=== PATIENT | male | born 1940 | race Caucasian/White ===

== ENCOUNTER 2022-06-18 17:43 | Outpatient (CLI) | payer MEDICARE, BC, SELFPAY | END 2022-06-18 17:44 | disposition home or self-care (01) | LOC: AMB 06-23 19:13 | PROVIDERS: PCP Surgery; Visit Provider Emergency Medicine Emergency Medical Services | DX: R07.89 Other chest pain (principal); M79.642 Pain in left hand; M54.2 Cervicalgia | CPT/HCPCS: A0425; A0427; A0428 ==

== ENCOUNTER 2022-06-18 18:17 | Emergency (ER) | payer MEDICARE, BC, SELFPAY ==
[2022-06-18 18:27] VITALS: BP 152/106; PULSE 50; RESP 14; TEMP 36.4; O2SAT 99; BMI 24.4
--- NOTE | 2022-06-18 18:27 | ED_ITS ---
HPI - General Adult General Time Seen by Provider: 18:46 Date Seen: 06/18/22 Chief complaint: Neck Injury/Pain Stated complaint: Arm Pain Time Seen by Provider: 06/18/22 18:26 Source: patient, EMS and RN notes reviewed Mode of arrival: EMS Limitations: no limitations History of Present Illness HPI narrative: Patient is from a memory care unit where he was sent in for left arm pain. He can very precisely describe to me that the pain is starting from his neck goes down the back of the left shoulder and will shoot down into the arm. Denies any numbness tingling. There is no known trauma that we are aware. There is no reported fevers. He was also reportedly found to be bradycardic per staff. He is denying any chest pain, no difficulty breathing no abdominal symptoms. He does tell me that he has memory issues. [place] states that [place] but he can not remember the flavor. Related Data Home Medications Medication Instructions Recorded Confirmed apixaban 5 mg tablet (Eliquis) mg 06/18/22 atorvastatin 40 mg tablet mg 06/18/22 diclofenac sodium 1 % topical gel topical 06/18/22 donepezil 10 mg tablet mg 06/18/22 hydrocortisone 1 % topical cream applic 06/18/22 ketoconazole 2 % topical cream applic topical 06/18/22 metoprolol succinate 50 mg mg PO 06/18/22 tablet,extended release 24 hr mirtazapine 30 mg tablet mg 06/18/22 polyethylene glycol 3350 17 gram g 06/18/22 oral powder packet quetiapine 25 mg tablet mg 06/18/22 sennosides 8.6 mg-docusate sodium PO 06/18/22 50 mg tablet (Senokot-S) white petrolatum topical 06/18/22 Previous Rx's Medication Instructions Recorded prednisone 20 mg tablet 20 mg PO DAILY #5 tabs 06/18/22 Allergies Allergy/AdvReac Type Severity Reaction Status Date / Time morphine AdvReac Intermediate Gastrointestinal Verified 06/18/22 18:25 Upset [id number] Reductase AdvReac Intermediate Gastrointestinal Verified 06/18/22 18:25 Inhibitor Upset Review of Systems Status of ROS: Reports: 6 or more systems reviewed and unremarkable except as noted in History and below Exam Const: Vital Signs, click to edit/add: Vital Signs - 24 hr 06/18/22 18:27 06/18/22 18:54 06/18/22 20:33 Temperature 97.5 F L Pulse Rate [Pulse Oximeter] 50 L 50 L Respiratory Rate 14 16 Blood Pressure [Ri ght Upper Arm] 152/106 H 166/104 H Pulse Oximetry 99 97 97 Oxygen Delivery Me thod Room Air Documenting provider has reviewed patient's vital signs: yes Common normals: no apparent distress, average body habitus, healthy appearing and alert General appearance: cooperative, comfortable, well kempt and well developed HENMT: Common normals: normocephalic, head/scalp atraumatic and hearing grossly normal bilaterally Head and scalp: normocephalic and atraumatic Eye: Common normals: PERRL, EOMs intact bilaterally, conjunctivae normal and no scleral icterus Conjunctiva: conjunctiva(e) normal Pupil: PERRL Neck & C-Spine: Common normals: full ROM, no lymphadenopathy, supple, no meningeal signs, no JVD and thyroid normal Thyroid: thyroid normal Chest: Common normals: inspection of chest normal and palpation of chest normal Resp: Common normals: normal respiratory effort, no retractions, no use of accessory muscles and clear to auscultation bilaterally Auscultation: clear to auscultation bilaterally Cardio: Common normals: no JVD, regular rate, regular rhythm, S1 normal heart sound, S2 normal heart sound, no gallops, no clicks and no murmurs Rate: regular rate Rhythm: regular rhythm Heart sounds: S1 normal and S2 normal Extremity: Other: Has no pain with range of motion of the shoulder. Has normal strength throughout his left arm. Normal light touch sensation and normal vascularity in this extremity. Neuro: Common normals: CN's II-XII intact bilaterally, moves all extremities, no focal motor deficits, no sensory deficits noted and gait normal Sensorium/orientation: alert Meningeal signs: no meningeal signs Psych: Appearance: well kempt Skin: Common normals: no rashes or lesions noted General skin exam: no rashes or lesions noted Course Course Hospital Course: We will x-ray his neck as this seems to be a classic cervical radiculopathy that he is relaying to me. The nursing staff reported they were concerned about bradycardia. Will have him on cardiac monitoring and pulse oximetry. Will get appropriate labs. I do see that he is on metoprolol, dosing may need to be decreased as I do not know his dose. Reevaluation(s) Reevaluation #1: Reviewed with patient that I believe he has a pinched nerve causing his left arm symptoms. He is ambulated here without any difficulty, has not changed his symptoms. His bradycardia at this point is asymptomatic, they can do outpatient Holter or other monitoring but at this time he seems asymptomatic. He tells me that he has not been fed in a month here. He would like some bread in jam. I did provide this for him. Time: 20:46 Vital Signs Vital signs: Initial Vital Signs Temperature 97.5 F L 06/18/22 18:27 Temperature Source Temporal Artery Scan 06/18/22 18:27 Pulse Rate 50 L 06/18/22 18:27 Respiratory Rate 14 06/18/22 18:27 Blood Pressure 152/106 H 06/18/22 18:27 Blood Pressure Mean 121 06/18/22 18:27 Pulse Oximetry 99 06/18/22 18:27 Oxygen Delivery Method 06/18/22 18:27 Vital Signs Temperature 97.5 F L 06/18/22 18:27 Pulse Rate 50 L 06/18/22 18:27 Respiratory Rate 14 06/18/22 18:27 Blood Pressure 152/106 H 06/18/22 18:27 Pulse Oximetry 99 06/18/22 18:27 Oxygen Delivery Method 06/18/22 18:27 Temperature 97.5 F L 06/18/22 18:27 Pulse Rate 50 L 06/18/22 20:33 Respiratory Rate 16 06/18/22 20:33 Blood Pressure 166/104 H 06/18/22 20:33 Pulse Oximetry 97 06/18/22 20:33 Oxygen Delivery Method 06/18/22 18:27 Medical Decision Making Lab Data Lab results reviewed: Yes I reviewed the patient's lab results Labs: Lab Results 06/18/22 06/18/22 06/18/22 Range/Units 19:33 19:33 19:33 WBC 5.32 (4.50-11.00) K/uL RBC 4.11 L (4.30-5.90) m/uL Hgb 13.2 L (13.5-17.5) gm/dL Hct 38.2 (37.0-53.0) % MCV 93 (80-100) fL MCH 32 (26-34) pg MCHC 35 (32-36) gm/dL RDW Coeff of Bong 12.7 (11.5-15.5) % Plt Count 147 (140-440) K/uL Neut % (Auto) 47.0 (42.0-72.0) % Lymph % (Auto) 36.8 (20-44) % Starke % (Auto) 11.5 H (0.0-11.0) % Eos % (Auto) 4.1 (0.0-7.0) % Baso % (Auto) 0.4 (0.0-3.0) % Neut # (Auto) 2.50 (1.7-7.0) K/uL Lymph # (Auto) 1.96 (0.90-2.90) K/uL Starke # (Auto) 0.60 (0.00-0.90) K/UL Eos # (Auto) 0.22 (0.00-0.50) K/uL Baso # (Auto) 0.02 (0.00-0.30) K/uL Sodium 137 (135-149) mmol/L Potassium 4.5 (3.6-5.1) mmol/L Chloride 103 (96-114) mmol/L Carbon Dioxide 29 (20-32) mmol/L BUN 19 (7-30) mg/dL Creatinine 1.0 (0.5-1.5) mg/dL Estimated Creat Clear 59.90 Estimated GFR 77 ml/min Glucose 89 (60-115) mg/dL Calcium 9.1 (8.4-10.6) mg/dL Magnesium 1.8 (1.5-2.6) mg/dL Total Bilirubin 0.8 (0.1-1.5) mg/dL AST 40 H (12-35) U/L ALT 46 (4-50) U/L Alkaline Phosphatase 61 (40-150) U/L NT-Pro-B Natriuret Pep 619 pg/mL Total Protein 6.7 (6.0-8.3) g/dL Albumin 4.5 (3.3-5.0) g/dL POC Troponin I 0.00 L (0.01-0.04) ng/ml Imaging Data Chest x-ray: Attestation: I have reviewed the pertinent imaging results. My impression: No acute cardiopulmonary pathology on review of this imaging preliminarily. Radiologist's impression: Patient: KEY LOPEZ Facility:?[facility] Patient ID:?[id number] Site Patient ID:?[id number]. Site :?[id number] Study:?XRay Chest 2V-06/18/2022 7:21:36 PM Ordering Physician:?Yazmin Tello Final Report: INDICATION: Bradycardia. TECHNIQUE: Chest 2 views. COMPARISON: None. FINDINGS: Cardiovascular and mediastinum: Cardiomediastinal silhouette is within normal limits Lungs and pleural spaces: Lungs are clear. No sign of pleural effusion. No pneumothorax. Bones and soft tissues: No significant findings. IMPRESSION: No acute or significant findings. Dictated by Mikhail Baker MD @ 06/18/2022 7:28:43 PM (Electronic Signature) X-ray cervical spine: Attestation: I have reviewed the pertinent imaging results. My impression: No acute fracture my preliminary read, does have some decreased disc space C4 and 5 and C5-6, certainly with degenerative changes on my preliminary review. Await Radiology over-read. Radiologist's impression: Patient: KEY LOPEZ Facility:?[facility] Patient ID:?[id number] Site Patient ID:?[id number]. Site :?[id number] Study:?XRay Spine Cervical 3V-06/18/2022 7:21:17 PM Ordering Physician:?Yazmin Tello Final Report: INDICATION: Radiculopathy. TECHNIQUE: Three views of the cervical spine. COMPARISON: None available. FINDINGS: Diffuse demineralization. No static spondylolisthesis. The cervical vertebral body heights are maintained. Moderate-severe degenerative disc disease predominating at the C4-T1 levels. Moderate multilevel uncovertebral and facet arthrosis. Nonthickened prevertebral soft tissues. IMPRESSION: Advanced multilevel cervical spondylosis. Dictated by Richy Muro MD @ 06/18/2022 7:28:18 PM Dictated by: Richy Muro MD @ 06/18/2022 19:28:28 (Electronic Signature) ECG Data Attestation: I personally reviewed and interpreted this ECG as follows: (Sinus bradycardia, 51 beats per minute, do not appreciate any ischemia/infarct.) Prior ECG tracings: not available for review Critical Care Time Critical Care Time Critical Care Time: No Discharge Plan Discharge Clinical Impression: Left cervical radiculopathy, Bradycardia Condition: Stable Instructions: Cervical Radiculopathy (ED), Bradycardia (ED) Additional Instructions: 1. Patient ambulated here in the department and was asymptomatic as far as his bradycardia. I see that he is on metoprolol, contact his primary care provider tomorrow to see if this dosage can be decreased. That would be my 1st recommendation to resolve the bradycardia. If bradycardia continued despite decreasing his metoprolol, could consider doing outpatient workup with Holter monitoring or ZIO patch. 2. For the left arm pain, this would be seemingly coming from a cervical radiculopathy. Would recommend prednisone 20 mg daily with food for 5 days. Also recommend follow up with his primary care provider in clinic within the next 1-2 weeks. Can give him Tylenol 1000 mg 3 times a day as needed for pain management. Physical therapy could work with him for this. Activity Level: Activity as Tolerated Prescriptions: New prednisone 20 mg tablet 20 mg PO DAILY Qty: 5 0RF No Action quetiapine 25 mg tablet Label Comments: TAKE 1 TAB BY MOUTH THREE TIMES DAILY;TAKE 1 TAB ONCE DAILY NEEDED FOR AGITATION atorvastatin 40 mg tablet Label Comments: TAKE 1 TABLET BY MOUTH DAILY AT BEDTIME polyethylene glycol 3350 17 gram powder in packet Label Comments: DISSOLVE 1 PACK IN WATER AND TAKE BY MOUTH ONCE DAILY metoprolol succinate 50 mg tablet extended release 24 hr PO Label Comments: TAKE 1 TAB BY MOUTH ONCE DAILY . donepezil 10 mg tablet Label Comments: TAKE 1 TABLET BY MOUTH DAILY AT BEDTIME sennosides-docusate sodium [Senokot-S] 8.6-50 mg tablet PO Label Comments: TAKE 1 TAB BY MOUTH TWICE DAILY hydrocortisone 1 % cream Label Comments: APPLY TO AFFECTED AREA(S) THREE TIMES DAILY NEEDED FOR ITCHY RASH mirtazapine 30 mg tablet Label Comments: TAKE 1 TAB BY MOUTH AT BEDTIME ketoconazole 2 % cream TOPICAL Label Comments: APPLY TOPICALLY TO AFFECTEDAREA(S) ON TRUNK TWICE A DAY white petrolatum Gel TOPICAL Label Comments: APPLY TOPICALLY TO AFFECTED AREA(S) NEEDED. KEEP AT BEDSIDE diclofenac sodium 1 % gel TOPICAL Label Comments: APPLY 2GMS TOPICALLY TO AFFECTED AREAS TWICE DAILY ;APPLY 2GMS TOPCAILLY TO AFFECTED AREA(S) TWICE A DAY NEEDED FOR PAIN Eliquis 5 mg tablet Label Comments: TAKE 1 TAB BY MOUTH TWICE A DAY Follow Up/Referrals: Benedicto Dean MD [Primary Care Provider] - Stand Alone Forms: [employer] Info Instructions
--- NOTE | 2022-06-18 18:53 | CRLHL7_ITS ---
For Patients: As a result of the Cures Act, medical imaging exams and procedure reports are released immediately into your electronic medical record. You may view this report before your referring provider. If you have questions, please contact your health care provider. INDICATION: Radiculopathy. TECHNIQUE: Three views of the cervical spine. COMPARISON: None available. FINDINGS: Diffuse demineralization. No static spondylolisthesis. The cervical vertebral body heights are maintained. Moderate-severe degenerative disc disease predominating at the C4-T1 levels. Moderate multilevel uncovertebral and facet arthrosis. Nonthickened prevertebral soft tissues. IMPRESSION: Advanced multilevel cervical spondylosis. Dictated by Richy Muro MD @ 06/18/2022 7:28:18 PM Dictated by: Richy Muro MD @ 06/18/2022 19:28:28 (Electronically Signed)
[2022-06-18 18:54] VITALS: O2SAT 97
--- NOTE | 2022-06-18 18:55 | CRLHL7_ITS ---
For Patients: As a result of the Cures Act, medical imaging exams and procedure reports are released immediately into your electronic medical record. You may view this report before your referring provider. If you have questions, please contact your health care provider. INDICATION: Bradycardia. TECHNIQUE: Chest 2 views. COMPARISON: None. FINDINGS: Cardiovascular and mediastinum: Cardiomediastinal silhouette is within normal limits Lungs and pleural spaces: Lungs are clear. No sign of pleural effusion. No pneumothorax. Bones and soft tissues: No significant findings. IMPRESSION: No acute or significant findings. Dictated by Mikhail Baker MD @ 06/18/2022 7:28:43 PM (Electronically Signed)
[2022-06-18 19:46] LABS: Basophils Absolute Auto 0.02 K/uL (0.00-0.30); Basophils Percent Auto 0.4 % (0.0-3.0); Eosinophils Absolute Auto 0.22 K/uL (0.00-0.50); Eosinophils Percent Auto 4.1 % (0.0-7.0); Hematocrit 38.2 % (37.0-53.0); Hemoglobin* 13.2 gm/dL (13.5-17.5); Immature Granulocytes Abs Auto 0.01 K/uL (0.00-0.30); Immature Granulocytes Pct Auto 0.2 %; Lymphocytes Absolute Auto 1.96 K/uL (0.90-2.90); Lymphocytes Percent Auto 36.8 % (20-44); Mean Corpuscular HGB Conc 35 gm/dL (32-36); Mean Corpuscular Hemoglobin 32 pg (26-34); Mean Corpuscular Volume 93 fL (80-100); Monocytes Percent Auto 11.5 % (0.0-11.0); Platelet Count* 147 K/uL (140-440); RDW Coefficient of Variation % 12.7 % (11.5-15.5); Red Blood Count 4.11 m/uL (4.30-5.90); White Blood Count* 5.32 K/uL (4.50-11.00)
[2022-06-18 20:04] LABS: Albumin* 4.5 g/dL (3.3-5.0)
[2022-06-18 20:05] LABS: Chloride* 103 mmol/L (96-114); Potassium* 4.5 mmol/L (3.6-5.1); Sodium* 137 mmol/L (135-149)
[2022-06-18 20:07] LABS: Aspartate Amino Transferase* 40 U/L (12-35); Bilirubin Total* 0.8 mg/dL (0.1-1.5); Carbon Dioxide* 29 mmol/L (20-32); Estimated Glomerular Filt Rate 77 ml/min; Total Protein* 6.7 g/dL (6.0-8.3)
[2022-06-18 20:08] LABS: Alanine Aminotransferase* 46 U/L (4-50); Alkaline Phosphatase* 61 U/L (40-150); Blood Urea Nitrogen* 19 mg/dL (7-30); Calcium* 9.1 mg/dL (8.4-10.6); Glucose* 89 mg/dL (60-115); Magnesium* 1.8 mg/dL (1.5-2.6)
[2022-06-18 20:11] LABS: Slide Review Reflex No
[2022-06-18 20:21] LABS: NT Pro B Type NatriureticPept* 619 pg/mL
[2022-06-18 20:33] VITALS: BP 166/104; PULSE 50; RESP 16; O2SAT 97
--- NOTE | 2022-06-18 22:37 | ED.NURSE ---
RN report called to [facility]. Son and POA also contacted regarding ride back to SNF, he gives permission to use non-emergent EMS transport.
== END 2022-06-18 22:39 | disposition home or self-care (01) ==
PROVIDERS: Emergency Provider Family Medicine; PCP Surgery
DX: M54.12 Radiculopathy, cervical region (principal)
CPT/HCPCS: 36415; 71046; 72040; 80053; 83735; 83880; 84443; 84484; 85025; 93005; 94761; 99284; 99285

== ENCOUNTER 2022-06-18 21:31 | Outpatient (CLI) | payer MEDICARE, BC, SELFPAY | END 2022-06-18 21:32 | disposition home or self-care (01) | LOC: AMB 06-23 20:04 | PROVIDERS: PCP Surgery; Visit Provider Emergency Medicine Emergency Medical Services | DX: G57.80 Other specified mononeuropathies of unspecified lower limb (principal) | CPT/HCPCS: A0425; A0428 ==

== ENCOUNTER 2023-08-07 02:51 | Outpatient (CLI) | payer BC, SELFPAY | END 2023-08-07 02:52 | disposition home or self-care (01) | LOC: AMB 08-09 16:53 | PROVIDERS: PCP Surgery; Visit Provider Family Medicine | DX: T50.901A Poisoning by unspecified drugs, medicaments and biological substances, accidental (unintentional), initial encounter (principal) | CPT/HCPCS: A0425; A0427 ==

== ENCOUNTER 2023-08-07 03:25 | Emergency (ER) | payer BC, SELFPAY ==
[2023-08-07] VITALS (7 sets, daily range): BP systolic 166–172; BP diastolic 86–112; PULSE 82–104; RESP 20; TEMP 37.4; O2SAT 95–98
[2023-08-07] MEDS: BENZOCAINE/MENTHOL 1 EACH LOZENGE MUCOUS MEM ×5 (03:53→08:52)
--- NOTE | 2023-08-07 03:53 | ED.GENADULT ---
HPI - General Adult General Chief complaint: Overdose Stated complaint: Chemical ingestion Time Seen by Provider: 08/07/23 03:37 Source: patient and EMS Mode of arrival: EMS History of Present Illness HPI narrative: 82-year-old male presents to the emergency department following an accidental overdose. He is in a locked dementia unit at [address] [place] [address]. He was found alert by staff coughing. It looks as though he consumed cleaning products orally, thinking this was water. He could have ingested up to 25 oz. active agent mainly ammonium chloride. Was in control has been contacted. They said to watch for mouth throat and stomach irritation, there is a risk of topical baumann with this product and he should be observed for 4 hours. He does not know his medical history at all. We do have a medicine list accompanying him from his care center that shows dementia medications, antihypertensives and apixaban. Acutely, he complains of mouth and throat irritation. He did vomit once. He continues to clear his throat stating that it feels like there is something in his throat that he cannot get up. He denies any chest pain, no bloody stools. I would not consider him an accurate historian but he is fully awake and does attempt to answer questions and is quite pleasant. He declines to take off his clothing to change into a gown or his cowboy boots. Past medical history is reviewed from the accompanying packet from his longterm. ROS notable for the oral and throat irritation as above, otherwise denies times 12 systems but should not be considered fully reliable. Related Data Home Medications Medication Instructions Recorded Confirmed apixaban 5 mg tablet (Eliquis) 5 mg PO Q12H 06/18/22 08/07/23 atorvastatin 40 mg tablet 40 mg PO QHS 06/18/22 08/07/23 diclofenac sodium 1 % topical gel 2 g topical BID 06/18/22 08/07/23 donepezil 10 mg tablet 10 mg PO QHS 06/18/22 08/07/23 hydrocortisone 1 % topical cream 1 applic 06/18/22 ketoconazole 2 % topical cream 1 applic topical 06/18/22 metoprolol succinate 50 mg 50 mg PO 06/18/22 tablet,extended release 24 hr mirtazapine 30 mg tablet 30 mg 06/18/22 polyethylene glycol 3350 17 gram 17 g 06/18/22 oral powder packet quetiapine 25 mg tablet 25 mg 06/18/22 sennosides 8.6 mg-docusate sodium 1 tab-cap PO 06/18/22 50 mg tablet (Senokot-S) white petrolatum 1 applic topical 06/18/22 Previous Rx's Medication Instructions Recorded prednisone 20 mg tablet 20 mg PO DAILY #5 tabs 06/18/22 Allergies Allergy/AdvReac Type Severity Reaction Status Date / Time morphine AdvReac Intermediate Gastrointestinal Verified 06/18/22 18:25 Upset [id number] Reductase AdvReac Intermediate Gastrointestinal Verified 06/18/22 18:25 Inhibitor Upset [facility] Medical History (Updated 08/07/23 @ 05:19 by Dede Norton MD) Epilepsy ?G40.909 - Epilepsy, unspecified, not intractable, without status epilepticus (ICD-10) Personal history of transient ischemic attack (TIA), and cerebral infarction without residual deficits ?Z86.73 - Personal history of transient ischemic attack (TIA), and cerebral infarction without residual deficits (ICD-10) Hyperlipidemia ?E78.5 - Hyperlipidemia, unspecified (ICD-10) Chronic kidney disease ?N18.9 - Chronic kidney disease, unspecified (ICD-10) HTN (hypertension) ?I10 - Essential (primary) hypertension (ICD-10) Benign prostatic hyperplasia with lower urinary tract symptoms ?N40.1 - Benign prostatic hyperplasia with lower urinary tract symptoms (ICD-10) Atrial fibrillation and flutter ?I48.91 - Unspecified atrial fibrillation (ICD-10) ?I48.92 - Unspecified atrial flutter (ICD-10) Dementia with behavioral disturbance ?F03.918 - Unspecified dementia, unspecified severity, with other behavioral disturbance (ICD-10) Social History Smoking Status: Unknown if ever smoked Do you use any of these nicotine containing products: None Second hand tobacco smoke exposure: No How often do you have a drink containing alcohol: never AUDIT-C Alcohol total score: 0 Non-prescribed substance use: denies use service: No Exam Const: Vital Signs, click to edit/add: Vital Signs - 24 hr 08/07/23 03:32 08/07/23 03:34 08/07/23 03:45 Temperature 99.4 F Pulse Rate 104 H 86 Pulse Rate [Right Pulse Oximeter] 88 Respiratory Rate 20 Blood Pressure Blood Pressure [Le ft Upper Arm] 172/86 H Pulse Oximetry 98 96 95 Oxygen Delivery Me thod Room Air 08/07/23 04:00 08/07/23 04:15 08/07/23 06:08 Temperature Pulse Rate 84 92 82 Pulse Rate [Right Pulse Oximeter] Respiratory Rate Blood Pressure Blood Pressure [Le ft Upper Arm] Pulse Oximetry 95 95 95 Oxygen Delivery Me thod 08/07/23 06:09 Temperature Pulse Rate Pulse Rate [Right Pulse Oximeter] Respiratory Rate Blood Pressure 166/112 H Blood Pressure [Le ft Upper Arm] Pulse Oximetry Oxygen Delivery Me thod Other: Sweet, elderly gentleman, oriented to person loosely to situation. Does remember drinking the contents, denies any intent of self-harm, does seem to genuinely think this was water, story was very reproducible between different interviewers. Coughing and attempting to clear throat frequently. No blood. HENMT: Common normals: normocephalic and head/scalp atraumatic Head and scalp: normocephalic and atraumatic Face and sinus: normal facial exam Mouth: oral and palatal mucosa normal Throat: posterior oropharynx normal Other: No obvious baumann or ulcerations or bleeding to oropharynx. Eye: Common normals: conjunctivae normal General eye: normal appearance of both eyes Conjunctiva: conjunctiva(e) normal Neck & C-Spine: Common normals: full ROM, no lymphadenopathy and no meningeal signs Resp: Common normals: normal respiratory effort, no use of accessory muscles and clear to auscultation bilaterally Effort & inspection: able to speak in complete sentences Auscultation: clear to auscultation bilaterally Cardio: Common normals: regular rate, regular rhythm, S1 normal heart sound, S2 normal heart sound and no murmurs Rate: regular rate Rhythm: regular rhythm Heart sounds: S1 normal and S2 normal GI: Common normals: Normal to inspection, nondistended, normoactive bowel sounds present, soft to palpation, non-tender, no hepatosplenomegaly and no masses Palpation: soft and no hepatosplenomegaly Extremity: Other: Limited exam as he declines to disrobe but exposed areas of hands, wrists and upper chest appear visibly normal. Neuro: Meningeal signs: no meningeal signs Cranial nerves: CN normal except as noted Speech: speech normal Motor exam: strength 5/5 throughout and no movement abnormalities noted Psych: Attitude: calm Mood and affect: euthymic mood Other: Memory impairment but cooperative. Insight fair. Judgment limited. Skin: Common normals: no rashes or lesions noted General skin exam: no rashes or lesions noted Course Course ED Course: Poison control contacted, recommended 4 hours of observation. I do have significant concerns with his level of discomfort in dementia that he will be able to maintain hydration. Will give 1 L of normal saline over 2 hours, try some Protonix and Cepacol lozenges as well as Maalox. If he tolerates this well and takes oral nutrition, he could potentially be discharged back to his custodial facility. If he is unable to maintain hydration, he will require an observation admission. Reevaluation(s) Time of Reevaluation #1: 05:07 Reevaluation #1: Much to surprise he is actually tolerating oral hydration and nutrition really well. He has had 3 cups of pudding and a carton of milk. His throat feels better when he has lozenges or something else to suck on. He would like the Cepacol more often, but I do not think this is necessary. Will offer cough drops or other hard candy for him to suck on as a distraction. It looks as though he is probably going to be able to be discharged to home. Will continue another 2 hours of observation at the recommendation of poison Control. I do not think that he needs any more IV fluids since he is taking oral very well. Plan for a soft diet and discharge if he continues to do well. Will give Tylenol for comfort. Time of Reevaluation #2: 07:35 Reevaluation #2: Patient continuing to do well. Resting comfortably, cough and discomfort have improved quite a bit. No signs of respiratory or GI compromise. Will be discharged with instructions for soft foods, Tylenol p.r.n.. Alarm symptoms reviewed in writing. Vital Signs Vital signs: Initial Vital Signs Pulse Rate 104 H 08/07/23 03:32 Pulse Oximetry 98 08/07/23 03:32 Vital Signs Pulse Rate 104 H 08/07/23 03:32 Pulse Oximetry 98 08/07/23 03:32 Temperature 99.4 F 08/07/23 03:34 Pulse Rate 82 08/07/23 06:08 Respiratory Rate 20 08/07/23 03:34 Blood Pressure 166/112 H 08/07/23 06:09 Pulse Oximetry 95 08/07/23 06:08 Oxygen Delivery Method Room Air 08/07/23 03:34 Medications Administered Medications: Generic Name Dose Route Start Last Admin Trade Name Freq PRN Reason Stop Dose Admin Benzocaine/Menthol 1 each 08/07/23 03:43 08/07/23 06:11 Benzocaine/Menthol 1 Each Lozenge MUCOUS MEM 1 each Q1H PRN Administration Mouth Irritation Discontinued Medications Generic Name Dose Route Start Last Admin Trade Name Freq PRN Reason Stop Dose Admin Acetaminophen 650 mg 08/07/23 05:06 08/07/23 05:24 Acetaminophen 325 Mg Tablet PO 08/07/23 05:07 650 mg ONCE ONE Administration Sodium Chloride 1,000 mls @ 1,000 mls/hr 08/07/23 03:43 08/07/23 03:56 0.9 % Sodium Chloride 1000 Ml IV 08/07/23 04:42 1,000 mls/hr .Q1H ZHANE Administration Lidocaine/Aluminum/Magnesium/Simeth 15 ml 08/07/23 03:43 08/07/23 04:05 Mag Hydrox/Aluminum Hyd/Simeth 30 Ml Oral.Susp PO 08/07/23 03:44 15 ml ONCE ONE Administration Pantoprazole Sodium 40 mg 08/07/23 03:43 08/07/23 03:59 Pantoprazole Sodium 40 Mg Inj IVP 08/07/23 03:44 40 mg ONCE ONE Administration Discharge Plan Discharge Clinical Impression: Accidental ingestion of substance Patient Disposition: Home w/ Parent or Adult Condition: Stable Instructions: Corrosive Esophagitis (ED) Additional Instructions: As we discussed, the substance that you accidentally ingested will cause irritation and a slight chemical burn to the mouth, throat and pharynx. Your given stomach acid medicine to help protect your stomach. Poison control recommends 4 hours of observation, this was completed. We had concerns that you would not be able to maintain nutrition or hydration from the irritation. But, your able to eat soft foods and drink without any complication here in the ED. I would recommend that you stick with soft foods for the next 48 hours. It is okay to use [id number] throat lozenges like Cepacol or cough drops or even just sucking on hard candy to help with irritation. It is okay to use Tylenol 650 mg every 6 hours as needed for discomfort. You found the pudding here in the emergency department to be very soothing and helpful. Bloody stools, bloody vomit and or inability to drink liquids would be a sign of problems. I would recommend that all hazardous chemicals be properly locked up at your nursing facility. It is okay to drink water and I would encourage this. Come back to the emergency department if there are concerns. Activity Level: Activity as Tolerated Diet Detail: Soft foods for 48 hours. Prescriptions: No Action quetiapine 25 mg tablet 25 mg Patient Comments: TAKE 1 TAB BY MOUTH THREE TIMES DAILY;TAKE 1 TAB ONCE DAILY NEEDED FOR AGITATION atorvastatin 40 mg tablet 40 mg PO QHS Patient Comments: TAKE 1 TABLET BY MOUTH DAILY AT BEDTIME polyethylene glycol 3350 17 gram powder in packet 17 g Patient Comments: DISSOLVE 1 PACK IN WATER AND TAKE BY MOUTH ONCE DAILY metoprolol succinate 50 mg tablet extended release 24 hr 50 mg PO Patient Comments: TAKE 1 TAB BY MOUTH ONCE DAILY . donepezil 10 mg tablet 10 mg PO QHS Patient Comments: TAKE 1 TABLET BY MOUTH DAILY AT BEDTIME sennosides-docusate sodium [Senokot-S] 8.6-50 mg tablet 1 tab-cap PO Patient Comments: TAKE 1 TAB BY MOUTH TWICE DAILY hydrocortisone 1 % cream 1 applic Patient Comments: APPLY TO AFFECTED AREA(S) THREE TIMES DAILY NEEDED FOR ITCHY RASH mirtazapine 30 mg tablet 30 mg Patient Comments: TAKE 1 TAB BY MOUTH AT BEDTIME ketoconazole 2 % cream 1 applic TOPICAL Patient Comments: APPLY TOPICALLY TO AFFECTEDAREA(S) ON TRUNK TWICE A DAY white petrolatum Gel 1 applic TOPICAL Patient Comments: APPLY TOPICALLY TO AFFECTED AREA(S) NEEDED. KEEP AT BEDSIDE diclofenac sodium 1 % gel 2 g TOPICAL BID Patient Comments: APPLY 2GMS TOPICALLY TO AFFECTED AREAS TWICE DAILY ;APPLY 2GMS TOPCAILLY TO AFFECTED AREA(S) TWICE A DAY NEEDED FOR PAIN Eliquis 5 mg tablet 5 mg PO Q12H Patient Comments: TAKE 1 TAB BY MOUTH TWICE A DAY prednisone 20 mg tablet 20 mg PO DAILY Qty: 5 0RF Follow Up/Referrals: Benedicto Dean MD [Primary Care Provider] - [facility]
[2023-08-07] MEDS: 0.9 % SODIUM CHLORIDE 1000 ml 1,000 ML IV (03:56)
[2023-08-07] MEDS: PANTOPRAZOLE SODIUM 40 MG INJ IVP (03:59)
[2023-08-07] MEDS: MAG HYDROX/ALUMINUM HYD/SIMETH 30 ML ORAL.SUSP 15 ML PO (04:05)
--- NOTE | 2023-08-07 04:48 | ED.NURSE ---
patient continuing to cough and c/o sore throat. Patient given pudding and milk. Patient states that pudding helps his throat discomfort
[2023-08-07] MEDS: ACETAMINOPHEN 325 MG TABLET 650 MG PO (05:24)
--- NOTE | 2023-08-07 08:19 | ED.NURSE ---
pt is dc'd but still waiting for sonshashank to come pick him up. daughter alec called and was updated. pt up in room independently and up to the bathroom. continues to drink ice water and use throat lozenges.
--- NOTE | 2023-08-07 08:52 | ED.NURSE ---
pt's son shashank here to take pt home.
== END 2023-08-07 08:54 | disposition home or self-care (01) ==
PROVIDERS: Emergency Provider Family Medicine; PCP Surgery
DX: T50.991A Poisoning by other drugs, medicaments and biological substances, accidental (unintentional), initial encounter (principal)
CPT/HCPCS: 96374; 99283; A9270; C9113; J7030